=== PATIENT | male | born 1940 | race Caucasian/White ===

== ENCOUNTER 2018-05-21 22:28 | Emergency (ER) | payer MEDICARE, OTHER ==
[~2018-05-21] VITALS: Ht 167.6 cm; Wt 50.8 kg
[2018-05-21] MEDS ORDERED: OXYMETAZOLINE 0.05% NASAL SPRAY 30ML BOTTLE. NS ONE (22:51)
[2018-05-21] MEDS ORDERED: GELATIN SPONGE SIZE 100. ONE (23:04)
[2018-05-21] MEDS ORDERED: TRANEXAMIC ACID 1,000 MG/10 ML VIAL. TOP ONE (23:15)
[2018-05-21 23:31] LABS: BASO # 0.1 x10^3/uL (0.0-0.2); BASO % 1 % (0-3); EOS # 0.2 x10^3/uL (0.0-0.7); EOS % 2 % (0-3); HEMATOCRIT 37.5 % (39.0-53.0); HEMOGLOBIN 12.3 g/dL (13.0-17.5); LYMPH # 1.1 x10^3/uL (1.0-4.8); LYMPH % 8 % (24-48); MEAN CORPUSCULAR HEMOGLOBIN 33 pg (25-35); MEAN CORPUSCULAR HGB CONC 33 g/dL (31-37); MEAN CORPUSCULAR VOLUME 100 fL (79-100); MONO # 0.9 x10^3/uL (0.0-1.1); MONO % 7 % (0-9); NEUT # 11.1 x10^3uL (1.8-7.7); NEUT % 83 % (31-73); PLATELET COUNT 231 x10^3/uL (140-400); RED BLOOD COUNT 3.74 x10^6/uL (4.30-5.70); RED CELL DISTRIBUTION WIDTH 13.7 % (11.5-14.5); WHITE BLOOD COUNT 13.4 x10^3/uL (4.0-11.0)
[2018-05-21 23:38] LABS: PROTHROMBIN TIME PATIENT 12.5 SEC (11.7-14.0)
[2018-05-21 23:39] LABS: CALCIUM 10.1 mg/dL (8.5-10.1); GFR 72.3; POTASSIUM 4.6 mmol/L (3.5-5.1)
[2018-05-21 23:45] LABS: ALBUMIN 3.9 g/dL (3.4-5.0); ALBUMIN/GLOBULIN RATIO 0.9 (1.0-1.7); TOTAL BILIRUBIN 0.3 mg/dL (0.2-1.0); TOTAL PROTEIN 8.1 g/dL (6.4-8.2)
[2018-05-22] MEDS ORDERED: CEPH500C PO (00:09)
[2018-05-22 00:31] VITALS: BP 153/85
--- NOTE | 2018-05-22 00:50 | PHYS DOC ---
Past Medical History Past Medical History: COPD Past Surgical History: Other Additional Past Surgical Histo: Graft to left ear drum Alcohol Use: None Drug Use: None Adult General Chief Complaint Chief Complaint: NOSEBLEED HPI HPI Patient is a 77 year old male brought in by ambulance with nosebleed and anxiety. Apparently it started earlier in the day it stopped on its own and then came back and he was having trouble breathing he is on home oxygen 4 L at baseline for COPD [facility] the history is limited by the patient's anxiety and very very hard of hearing. Review of Systems Review of Systems Limited by anxiety and acuity of condition Current Medications Current Medications Current Medications Medications (Trade) Dose Ordered Sig/Carlos Start Time Stop Time Status Last Admin Dose Admin Gelatin (Gelfoam Size 100) 1 each STK-MED ONCE 05/21/18 23:04 05/21/18 23:05 DC Lorazepam (Ativan) 2 mg STK-MED ONCE 05/21/18 23:31 05/21/18 23:32 DC Oxymetazoline HCl (Afrin) 120 spray STK-MED ONCE 05/21/18 22:51 05/21/18 22:52 DC Tranexamic Acid (Cyklokapron) 1,000 mg 1X ONCE 05/21/18 23:15 05/21/18 23:16 DC Allergies Allergies Allergies Coded Allergies Type Severity Reaction Last Updated Verified No Known Drug Allergies 05/22/18 No Physical Exam Physical Exam Constitutional: Well developed, cachectic HENT: Patient is active bleeding from the left Vivas visualization is difficult due to amount of bleeding however there appears to be a source of bleeding in the anterior superior medial nasal septum. Patient has his nasal cannula in his mouth and is tachypnea, Neck: Normal range of motion, no tenderness, supple, no stridor. [] Cardiovascular: Tachycardic no obvious murmurs. Lungs & Thorax: Distant bilateral breath sounds Abdomen: Bowel sounds normal, soft, no tenderness, no masses, no pulsatile masses. [] Skin: Warm, dry, no erythema, no rash. [] Back: No tenderness, no CVA tenderness. [] Extremities: No tenderness, no cyanosis, no clubbing, ROM intact, no edema. [] Neurologic: Alert and oriented X 3, normal motor function, normal sensory function, no focal deficits noted. [] Psychologic: Very anxious Current Patient Data Vital Signs Vital Signs Date Time Temp Pulse Resp B/P (MAP) Pulse Ox O2 Delivery O2 Flow Rate FiO2 05/22/18 00:01 124 142/85 (104) Nasal Cannula 4.0 05/21/18 23:31 96 05/21/18 22:28 97.8 28 97.8 Lab Values Laboratory Tests Test 05/21/18 23:20 White Blood Count 13.4 x10^3/uL (4.0-11.0) H Red Blood Count 3.74 x10^6/uL (4.30-5.70) L Hemoglobin 12.3 g/dL (13.0-17.5) L Hematocrit 37.5 % (39.0-53.0) L Mean Corpuscular Volume 100 fL (79-100) Mean Corpuscular Hemoglobin 33 pg (25-35) Mean Corpuscular Hemoglobin Concent 33 g/dL (31-37) Red Cell Distribution Width 13.7 % (11.5-14.5) Platelet Count 231 x10^3/uL (140-400) Neutrophils (%) (Auto) 83 % (31-73) H Lymphocytes (%) (Auto) 8 % (24-48) L Monocytes (%) (Auto) 7 % (0-9) Eosinophils (%) (Auto) 2 % (0-3) Basophils (%) (Auto) 1 % (0-3) Neutrophils # (Auto) 11.1 x10^3uL (1.8-7.7) H Lymphocytes # (Auto) 1.1 x10^3/uL (1.0-4.8) Monocytes # (Auto) 0.9 x10^3/uL (0.0-1.1) Eosinophils # (Auto) 0.2 x10^3/uL (0.0-0.7) Basophils # (Auto) 0.1 x10^3/uL (0.0-0.2) Prothrombin Time 12.5 SEC (11.7-14.0) Prothrombin Time INR 1.0 (0.8-1.1) Sodium Level 139 mmol/L (136-145) Potassium Level 4.6 mmol/L (3.5-5.1) Chloride Level 101 mmol/L (98-107) Carbon Dioxide Level 30 mmol/L (21-32) Anion Gap 8 (6-14) Blood Urea Nitrogen 37 mg/dL (8-26) H Creatinine 1.0 mg/dL (0.7-1.3) Estimated GFR (Cockcroft-Gault) 72.3 BUN/Creatinine Ratio 37 (6-20) H Glucose Level 160 mg/dL (70-99) H Calcium Level 10.1 mg/dL (8.5-10.1) Total Bilirubin 0.3 mg/dL (0.2-1.0) Aspartate Amino Transferase (AST) 22 U/L (15-37) Alanine Aminotransferase (ALT) 25 U/L (16-63) Alkaline Phosphatase 51 U/L (46-116) Total Protein 8.1 g/dL (6.4-8.2) Albumin 3.9 g/dL (3.4-5.0) Albumin/Globulin Ratio 0.9 (1.0-1.7) L Laboratory Tests 05/21/18 23:20 Laboratory Tests 05/21/18 23:20 EKG EKG [] Radiology/Procedures Radiology/Procedures [] Course & Med Decision Making Course & Med Decision Making Pertinent Labs and Imaging studies reviewed. (See chart for details) []77-year-old male with history of COPD who is on home oxygen present in with epistaxis apparent source of bleeding from the medial septum although the patient observation was somewhat difficult. It was bleeding quite briskly he was very anxious I placed Afrin in the left naris and then inserted a Merocel however the bleeding continued I then placed a Rhino Rocket in the left nose however the bleeding continue I then placed a Rhino Rocket in the right Vivas and 160s and then the bleeding did stop. Patient was observed in the ER for a couple of hours with no further bleeding. We did give him a simple mask to use on his face at home to supply him with oxygen while he has the packing in his nose. He was given a prescription for Keflex and he was told that [facility] needs [facility] to [facility] follow-up for packing removal and more detailed evaluation. Return precautions were discussed and he voiced understanding at the time of discharge his tachycardia had improved significantly he was downtrending zigzag had also improved a lot after dose of Ativan. Dragon Disclaimer Dragon Disclaimer This electronic medical record was generated, in whole or in part, using a voice recognition dictation system. Departure Departure Impression: Primary Impression: Epistaxis Disposition: 01 HOME, SELF-CARE Condition: STABLE Patient Instructions: Nosebleed, [id number] Additional Instructions: TAKE ANTIBIOTICS, [facility]-4 DAYS FOR PACKING REMOVAL. RETURN TO ER FOR RECURRENT BLEEDING. Scripts Cephalexin (CEPHALEXIN) 500 Mg Capsule 1 CAP PO QID, #20 CAP Prov: MALLIKA BELLO MD 05/22/18 MALLIKA BELLO MD May 22, 2018 00:50
== END 2018-05-22 02:01 | disposition home or self-care (01) ==
LOC: ER 22:28
DX: R04.0 Epistaxis (principal); F41.9 Anxiety disorder, unspecified; J44.9 Chronic obstructive pulmonary disease, unspecified
CPT/HCPCS: 36415; 80053; 85025; 85610; 96374; 99284; J2060

== ENCOUNTER 2020-10-17 12:34 | Inpatient (IN) | payer OTHER ==
[~2020-10-17] VITALS: Ht 160 cm; Wt 38.8 kg
[~2020-10-17 12:34] MED LIST: CEPH500C PO
[2020-10-17] MEDS ORDERED: ALBUTEROL SULFATE 2.5 MG/3 ML NEBU. NEB ONE (12:45)
[2020-10-17] MEDS ORDERED: DEXAMETHASONE SOD PHOS 4 MG/ML VIAL IVP ONE (12:45)
[2020-10-17 12:57] LABS: BASO % 0 % (0-3); EOS # 0.1 x10^3/uL (0.0-0.7); EOS % 1 % (0-3); HEMATOCRIT 36.1 % (39.0-53.0); HEMOGLOBIN 11.8 g/dL (13.0-17.5); LYMPH # 0.8 x10^3/uL (1.0-4.8); LYMPH % 11 % (24-48); MEAN CORPUSCULAR HEMOGLOBIN 33 pg (25-35); MEAN CORPUSCULAR HGB CONC 33 g/dL (31-37); MEAN CORPUSCULAR VOLUME 101 fL (79-100); MONO # 0.6 x10^3/uL (0.0-1.1); MONO % 8 % (0-9); NEUT # 6.1 x10^3/uL (1.8-7.7); NEUT % 80 % (31-73); PLATELET COUNT 243 x10^3/uL (140-400); RED BLOOD COUNT 3.57 x10^6/uL (4.30-5.70); RED CELL DISTRIBUTION WIDTH 13.9 % (11.5-14.5); WHITE BLOOD COUNT 7.5 x10^3/uL (4.0-11.0)
[2020-10-17 13:07] LABS: CALCIUM 10.3 mg/dL (8.5-10.1); GFR 71.7; POTASSIUM 4.3 mmol/L (3.5-5.1)
--- NOTE | 2020-10-17 13:07 | ED.ADGEN ---
Past Medical History Past Medical History: COPD Past Surgical History: Other Additional Past Surgical Histo: Graft to left ear drum Smoking Status: Former Smoker Alcohol Use: None Drug Use: None General Adult EDM: Chief Complaint: DYSPNEA/RESPIRATOY DISTRESS HPI: HPI: Patient is an 80-year-old male with past medical history of COPD on 7 L of oxygen who presents to the emergency room complaining of difficulty breathing. EMS turned his oxygen up to 8 and he has had normal pulse ox since that time. Patient states this is been ongoing for the last couple of days. He reports that he has been taking his medications. He does not believe he has had any fevers. He has had a mild cough. He has had multiple episodes of COPD exacerbations in the past. Review of Systems: Review of Systems: Complete ROS is negative unless otherwise documented in HPI Current Medications: Current Medications Medications (Trade) Dose Ordered Sig/Carlos Start Time Stop Time Status Last Admin Dose Admin Albuterol Sulfate (Ventolin Neb Soln) 2.5 mg 1X ONCE 10/17/20 12:45 10/17/20 12:46 DC 10/17/20 12:45 2.5 MG Dexamethasone Sodium Phosphate (Decadron) 10 mg 1X ONCE 10/17/20 12:45 10/17/20 12:46 DC 10/17/20 13:52 10 MG Info (CONTRAST GIVEN -- Rx MONITORING) 1 each PRN DAILY PRN 10/17/20 15:00 10/19/20 14:59 Iohexol (Omnipaque 300 Mg/ml) 75 ml 1X ONCE 10/17/20 15:00 10/17/20 15:01 DC Allergies: Allergies: Allergies Coded Allergies Type Severity Reaction Last Updated Verified No Known Drug Allergies 05/22/18 No Physical Exam: PE: General: Awake, alert, NAD. Cachectic, barrel chested HEENT: Atraumatic, EOMI, PERRL, airway patent, moist oral mucosa Neck: Supple, trachea midline Respiratory: Decreased breath sounds bilaterally, minimal wheezing, tachypnea CV: RRR, no murmur, cap refill <2 GI: Soft, nondistended, nontender, no masses MSK: No obvious deformities Skin: Warm, dry, intact Neuro: A&O x3, speech NL, sensory and motor grossly intact, no focal deficits Psych: Normal affect, normal mood, not suicidal or homicidal Current Patient Data: Labs: Laboratory Tests Test 10/17/20 12:40 10/17/20 12:52 White Blood Count 7.5 x10^3/uL (4.0-11.0) Red Blood Count 3.57 x10^6/uL (4.30-5.70) L Hemoglobin 11.8 g/dL (13.0-17.5) L Hematocrit 36.1 % (39.0-53.0) L Mean Corpuscular Volume 101 fL (79-100) H Mean Corpuscular Hemoglobin 33 pg (25-35) Mean Corpuscular Hemoglobin Concent 33 g/dL (31-37) Red Cell Distribution Width 13.9 % (11.5-14.5) Platelet Count 243 x10^3/uL (140-400) Neutrophils (%) (Auto) 80 % (31-73) H Lymphocytes (%) (Auto) 11 % (24-48) L Monocytes (%) (Auto) 8 % (0-9) Eosinophils (%) (Auto) 1 % (0-3) Basophils (%) (Auto) 0 % (0-3) Neutrophils # (Auto) 6.1 x10^3/uL (1.8-7.7) Lymphocytes # (Auto) 0.8 x10^3/uL (1.0-4.8) L Monocytes # (Auto) 0.6 x10^3/uL (0.0-1.1) Eosinophils # (Auto) 0.1 x10^3/uL (0.0-0.7) Basophils # (Auto) 0.0 x10^3/uL (0.0-0.2) Sodium Level 139 mmol/L (136-145) Potassium Level 4.3 mmol/L (3.5-5.1) Chloride Level 101 mmol/L (98-107) Carbon Dioxide Level 35 mmol/L (21-32) H Anion Gap 3 (6-14) L Blood Urea Nitrogen 18 mg/dL (8-26) Creatinine 1.0 mg/dL (0.7-1.3) Estimated GFR (Cockcroft-Gault) 71.7 BUN/Creatinine Ratio 18 (6-20) Glucose Level 119 mg/dL (70-99) H Calcium Level 10.3 mg/dL (8.5-10.1) H Total Bilirubin 0.5 mg/dL (0.2-1.0) Aspartate Amino Transferase (AST) 18 U/L (15-37) Alanine Aminotransferase (ALT) 20 U/L (16-63) Alkaline Phosphatase 118 U/L (46-116) H Troponin I Quantitative < 0.017 ng/mL (0.000-0.055) BQ-Evy-X-Type Natriuretic Peptide 282 pg/mL (0-449) Total Protein 8.3 g/dL (6.4-8.2) H Albumin 3.9 g/dL (3.4-5.0) Albumin/Globulin Ratio 0.9 (1.0-1.7) L O2 Saturation 98 % (92-99) Arterial Blood pH 7.44 (7.35-7.45) Arterial Blood pCO2 at Patient Temp 45 mmHg (35-46) Arterial Blood pO2 at Patient Temp 128 mmHg (65-108) H Arterial Blood HCO3 30 mmol/L (21-28) H Arterial Blood Base Excess 5 mmol/L (-3-3) H FiO2 52/8l nc Laboratory Tests 10/17/20 12:40 Laboratory Tests 10/17/20 12:40 Vital Signs: Vital Signs Date Time Temp Pulse Resp B/P (MAP) Pulse Ox O2 Delivery O2 Flow Rate FiO2 10/17/20 12:57 97 Nasal Cannula 8.0 10/17/20 12:34 98.2 95 31 149/77 (101) 98.2 EKG: EKG: [] Heart Score: Risk Factors: Risk Factors: DM, Current or recent (<one month) smoker, HTN, HLP, family history of CAD, obesity. Risk Scores: Score 0 - 3: 2.5% MACE over next 6 weeks - Discharge Home Score 4 - 6: 20.3% MACE over next 6 weeks - Admit for Clinical Observation Score 7 - 10: 72.7% MACE over next 6 weeks - Early Invasive Strategies Radiology/Procedures: Radiology/Procedures: [] Course & Med Decision Making: Course & Med Decision Making Pertinent Labs and Imaging studies reviewed. (See chart for details) Patient is an 80-year-old male with past medical history of COPD who presents to the emergency room complaining of shortness of breath. He is requiring a mild amount of increased oxygen. He does have some tachypnea and increased work of breathing on exam. Initially BiPAP was ordered, however patient refused. At that time a gas was done which is normal at this time. Patient does not need to be intubated at this time. He was given Decadron and duo nebs. Shortness of breath work-up was ordered including a CBC, BMP, chest x-ray, EKG. EKG is normal. Patient continues to have shortness of breath. He refused to do BiPAP. He will be admitted to the hospital for COPD exacerbation. Aletheaon Disclaimer: Saritha Disclaimer: This electronic medical record was generated, in whole or in part, using a voice recognition dictation system. Departure Departure Impression: Primary Impression: COPD exacerbation Disposition: ADMITTED INPT THIS HOSP Condition: IMPROVED Referrals: UNKNOWN PCP NAME (PCP) GILES NEW MD Oct 17, 2020 13:07
[2020-10-17 13:13] LABS: ALBUMIN 3.9 g/dL (3.4-5.0); ALBUMIN/GLOBULIN RATIO 0.9 (1.0-1.7); TOTAL BILIRUBIN 0.5 mg/dL (0.2-1.0); TOTAL PROTEIN 8.3 g/dL (6.4-8.2)
[2020-10-17 13:17] LABS: BASE EXCESS ABG 5 mmol/L (-3-3); HCO3 ABG 30 mmol/L (21-28); PCO2 ABG 45 mmHg (35-46); PO2 ABG 128 mmHg (65-108); SAT O2 ABG 98 % (92-99)
[2020-10-17 13:18] LABS: FIO2 ABG 52/8L NC
--- NOTE | 2020-10-17 13:57 | RAD ---
EXAM: XR CHEST 1V INDICATION: Reason: sob / Spl. Instructions: / History: . TECHNIQUE: Single view COMPARISON: None FINDINGS: The heart size is normal. Great vessels show enlargement of the pulmonary arteries, left greater than right and tortuosity of t he thoracic aorta. Fullness of the holley bilaterally is compatible with pulmonary arterial enlargement. No discrete mass identified. Lungs are hyperinflated in a pattern consistent with underlying COPD. There is scarring and volume lo ss in the right upper lobe with right hilar retraction. Nodular fullness of the right lung base is al so seen. There is no pleural effusion or pneumothorax. There are no significant osseous abnormalities. IMPRESSION: COPD with enlargement of the pulmonary arteries, suggesting pulmonary arterial hypertension, and volu me loss in the right upper lobe with elevation of the minor fissure, possibly reflecting hilar retrac tion from chronic inflammation. Post obstructive atelectasis from an obstructing right hilar mass is not confidently excluded. CT chest with IV contrast could be helpful in further evaluation. Electronically signed by: Roni Al MD (10/17/2020 1:54 PM) [id number]
[2020-10-17] MEDS ORDERED: CONTRAST GIVEN. MC PRN (15:00)
[2020-10-17] MEDS ORDERED: IOHEXOL 300 MG/ML 100ML VIAL. IV ONE (15:00)
--- NOTE | 2020-10-17 15:32 | RAD ---
CT THORAX W INDICATION: abnormal chest Comparison: Chest 10/17/2020. TECHNIQUE: Following the uneventful administration of intravenous contrast, 75 cc Omnipaque 350, axia l CT sections were obtained through the lungs and upper abdomen. Multiplanar reconstructions and MIP images were obtained. RS compliance statement: One or more of the following individualized dose reduction techniques were utilized for this examinat ion: 1. Automated exposure control 2. Adjustment of the mA and/or kV according to patient size 3. Use of iterative reconstruction technique FINDINGS: Lungs and Airways: Right upper lobe subpleural opacities, architectural distortion, volume loss, and bronchiectasis. There are a couple of small indeterminate pulmonary nodules with customer contact representative nodul e as follows: Right lower lobe indeterminate 6 mm nodule (series 2 image 42). Severe centrilobular em physema. Calcified left lower lobe granuloma. Pleura: The pleural spaces are normal. Heart and Mediastinum: The visualized thyroid is normal in size and attenuation. No axillary or supra clavicular lymphadenopathy. No mediastinal, hilar or retrocrural lymphadenopathy. Normal cardiac size . Coronary artery atherosclerotic disease. No pericardial effusion. Tortuous atherosclerotic thoracic aorta. Abdomen: Limited images through the upper abdomen show no abnormality of the visualized organs. Bones and Soft Tissues: Degenerative changes of the spine. Age indeterminate compression deformities at nearly every thoracic level. IMPRESSION: 1. Abnormality noted on the prior radiograph corresponds to right upper lobe subpleural opacities wit h volume loss and bronchiectasis. Suspect this represents sequela of chronic infection or potentially post radiation change if patient has been previously treated. No definite mass or thoracic lymphaden opathy is identified. Recommend comparison with prior imaging, or if no imaging available 3-6 month f ollow-up chest CT to assess stability. 2. Few small indeterminate pulmonary nodules. Attention on follow-up imaging. 3. Age-indeterminate compression deformities at nearly every thoracic level. Correlate for history of trauma/focal tenderness. Electronically signed by: Jamie Vuong MD (10/17/2020 3:30 PM) [facility]
--- NOTE | 2020-10-17 16:43 | PDOC1 ---
History and Physical Date of Admission Date of Admission DATE: 10/17/20 TIME: 16:43 Identification/Chief Complaint Chief Complaint Shortness of breath Source Source: Patient History of Present Illness History of Present Illness Mr Myrick is an 80yo [place] w/ PMHx COPD on 7 L of oxygen at home presents to ED via EMS c/o difficulty breathing. EMS turned his oxygen up to 8 and he has had normal pulse ox since that time. Patient states this is been ongoing for the last couple of days. No fevers, mild cough. Has been to the [facility] with multiple COPD exacerbations in the past. No recent sick contacts or COVID 19 exposures. He has been eating poorly recently and losing weight as well. Was tripoding with accessory muscle use, pursed lips with conversational dyspnea on interview in ED. Labs with WBC 7.5, Hb 11.8, platelets 243, MCV 101, Na 139, K 4.3, BUN 18, Cr 1, glucose 119, Ca 10.3, alk phos 118, BNP 282, Trop 0. ABG with pH 7.44, PaCO2 45, PaO2 128 on 8L. Chest radiograph with COPD with enlargement of the pulmonary arteries, suggesting pulmonary arterial hypertension, and volume loss in the right upper lobe with elevation of the minor fissure, confirmed on CT appeared to be bronchiectasis Admitted for further care Past Medical History Pulmonary: Bronchitis, COPD Past Surgical History Past Surgical History: Other (Right eardrum repair) Family History Family History: Hypertension Social History Smoke: Quit ALCOHOL: none Drugs: None Current Problem List Problem List Problems Medical Problems: (1) COPD exacerbation Status: Acute Current Medications Current Medications Current Medications Dexamethasone Sodium Phosphate (Decadron) 10 mg 1X ONCE IVP Last administered on 10/17/20at 13:52; Start 10/17/20 at 12:45; Stop 10/17/20 at 12:46; Status DC Albuterol Sulfate (Ventolin Neb Soln) 2.5 mg 1X ONCE NEB Last administered on 10/17/20at 12:45; Start 10/17/20 at 12:45; Stop 10/17/20 at 12:46; Status DC Iohexol (Omnipaque 300 Mg/ml) 75 ml 1X ONCE IV ; Start 10/17/20 at 15:00; Stop 10/17/20 at 15:01; Status DC Info (CONTRAST GIVEN -- Rx MONITORING) 1 each PRN DAILY PRN MC SEE COMMENTS; Start 10/17/20 at 15:00; Stop 10/19/20 at 14:59 Active Scripts Active Cephalexin 500 Mg Capsule 1 Cap PO QID Allergies Allergies: Coded Allergies: No Known Drug Allergies (Unverified , 05/22/18) ROS General: YES: Fatigue, Malaise, Appetite; No: Chills, Night Sweats, Other PSYCHOLOGICAL ROS: No: Anxiety, Behavioral Disorder, Concentration difficultie, Decreased libido, Depression, Disorientation, Hallucinations, Hostility, Irritablity, Memory difficulties, Mood Swings, Obsessive thoughts, Physical abuse, Sexual abuse, Sleep disturbances, Suicidal ideation, Other Eyes: No Blurry vision, No Decreased vision, No Double vision, No Dry eyes, No Excessive tearing, No Eye Pain, No Itchy Eyes, No Loss of vision, No Photophobia, No Scotomata, No Uses contacts, No Uses glasses, No Other HEENT: No: Heacaches, Visual Changes, Hearing change, Nasal congestion, Nasal discharge, Oral lesions, Sinus pain, Sore Throat, Epistaxis, Sneezing, Snoring, Tinnitus, Vertigo, Vocal changes, Other ALLERGY AND IMMUNOLOGY: No: Hives, Insect Bite Sensitivity, Itchy/Watery Eyes, Nasal Congestion, Post Nasal Drip, Seasonal Allergies, Other Hematological and Lymphatic: No: Bleeding Problems, Blood Clots, Blood Transfusions, Brusing, Night Sweats, Pallor, Swollen Lymph Nodes, Other ENDOCRINE: No: Breast Changes, Galactorrhea, Hair Pattern Changes, Hot Flashes, Malaise/lethargy, Mood Swings, Palpitations, Polydipsia/polyuria, Skin Changes, Temperature Intolerance, Unexpected Weight Changes, Other Breast: No New/Changing Breast Lumps, No Nipple changes, No Nipple discharge, No Other Respiratory: YES: Cough, Shortness of breath, SOB with excertion, Tachypnea, Wheezing; No: Hemoptysis, Orthopnea, Pleuritic Pain, Sputum Changes, Stridor, Other Cardiovascular: No Chest Pain, No Palpitations, No Orthopnea, No Paroxysmal Noc. Dyspnea, No Edema, No Lt Headedness, No Other Gastrointestinal: No Nausea, No Vomiting, No Abdominal Pain, No Diarrhea, No Constipation, No Melena, No Hematochezia, No Other Genitourinary: No Dysuria, No Frequency, No Incontinence, No Hematuria, No Retention, No Discharge, No Urgency, No Pain, No Flank Pain, No Other, No , No , No , No , No , No , No Musculoskeletal: No Gait Disturbance, No Joint Pain, No Joint Stiffness, No Joint Swelling, No Muscle Pain, No Muscular Weakness, No Pain In:, No Swelling In:, No Other Neurological: No Behavorial Changes, No Bowel/Bladder ControlChng, No Confusion, No Dizziness, No Gait Disturbance, No Headaches, No Impaired Coord/balance, No Memory Loss, No Numbness/Tingling, No Seizures, No Speech Problems, No Tremors, No Visual Changes, No Weakness, No Other Skin: No Dry Skin, No Eczema, No Hair Changes, No Lumps, No Mole Changes, No Mottling, No Nail Changes, No Pruritus, No Rash, No Skin Lesion Changes, No Other, No Acne Physical Exam General: Alert, Oriented X3, Cooperative, severe distress HEENT: Atraumatic, PERRLA, EOMI, Mucous membr. moist/pink Lungs: Other (diffuse wheezing, prolonged expiratory phase, intercostal retractions) Heart: S1S2, RRR, no thrills, no rubs, no gallops, no murmurs Abdomen: Normal bowel sounds, Soft, No tenderness, No hepatosplenomegaly, No masses Rectal Exam: not examined Extremities: No clubbing, No cyanosis, No edema, Normal pulses, No tenderness/swelling Skin: No rashes, No breakdown, No significant lesion Neuro: Normal gait, Normal speech, Strength at 5/5 X4 ext, Normal tone, Sensat ion intact, Cranial nerves 3-12 NL, Reflexes 2+ Psych/Mental Status: Mental status NL, Mood NL Vitals Vitals Vital Signs Date Time Temp Pulse Resp B/P (MAP) Pulse Ox O2 Delivery O2 Flow Rate FiO2 10/17/20 12:57 97 Nasal Cannula 8.0 10/17/20 12:34 98.2 95 31 149/77 (101) 98.2 Labs Labs Laboratory Tests Test 10/17/20 12:40 10/17/20 12:52 White Blood Count 7.5 x10^3/uL (4.0-11.0) Red Blood Count 3.57 x10^6/uL (4.30-5.70) Hemoglobin 11.8 g/dL (13.0-17.5) Hematocrit 36.1 % (39.0-53.0) Mean Corpuscular Volume 101 fL (79-100) Mean Corpuscular Hemoglobin 33 pg (25-35) Mean Corpuscular Hemoglobin Concent 33 g/dL (31-37) Red Cell Distribution Width 13.9 % (11.5-14.5) Platelet Count 243 x10^3/uL (140-400) Neutrophils (%) (Auto) 80 % (31-73) Lymphocytes (%) (Auto) 11 % (24-48) Monocytes (%) (Auto) 8 % (0-9) Eosinophils (%) (Auto) 1 % (0-3) Basophils (%) (Auto) 0 % (0-3) Neutrophils # (Auto) 6.1 x10^3/uL (1.8-7.7) Lymphocytes # (Auto) 0.8 x10^3/uL (1.0-4.8) Monocytes # (Auto) 0.6 x10^3/uL (0.0-1.1) Eosinophils # (Auto) 0.1 x10^3/uL (0.0-0.7) Basophils # (Auto) 0.0 x10^3/uL (0.0-0.2) Sodium Level 139 mmol/L (136-145) Potassium Level 4.3 mmol/L (3.5-5.1) Chloride Level 101 mmol/L (98-107) Carbon Dioxide Level 35 mmol/L (21-32) Anion Gap 3 (6-14) Blood Urea Nitrogen 18 mg/dL (8-26) Creatinine 1.0 mg/dL (0.7-1.3) Estimated GFR (Cockcroft-Gault) 71.7 BUN/Creatinine Ratio 18 (6-20) Glucose Level 119 mg/dL (70-99) Calcium Level 10.3 mg/dL (8.5-10.1) Total Bilirubin 0.5 mg/dL (0.2-1.0) Aspartate Amino Transf (AST/SGOT) 18 U/L (15-37) Alanine Aminotransferase (ALT/SGPT) 20 U/L (16-63) Alkaline Phosphatase 118 U/L (46-116) Troponin I Quantitative < 0.017 ng/mL (0.000-0.055) QZ-Meq-O-Type Natriuretic Peptide 282 pg/mL (0-449) Total Protein 8.3 g/dL (6.4-8.2) Albumin 3.9 g/dL (3.4-5.0) Albumin/Globulin Ratio 0.9 (1.0-1.7) O2 Saturation 98 % (92-99) Arterial Blood pH 7.44 (7.35-7.45) Arterial Blood pCO2 at Patient Temp 45 mmHg (35-46) Arterial Blood pO2 at Patient Temp 128 mmHg (65-108) Arterial Blood HCO3 30 mmol/L (21-28) Arterial Blood Base Excess 5 mmol/L (-3-3) FiO2 52/8l nc Laboratory Tests Test 10/17/20 12:40 10/17/20 12:52 White Blood Count 7.5 x10^3/uL (4.0-11.0) Red Blood Count 3.57 x10^6/uL (4.30-5.70) Hemoglobin 11.8 g/dL (13.0-17.5) Hematocrit 36.1 % (39.0-53.0) Mean Corpuscular Volume 101 fL (79-100) Mean Corpuscular Hemoglobin 33 pg (25-35) Mean Corpuscular Hemoglobin Concent 33 g/dL (31-37) Red Cell Distribution Width 13.9 % (11.5-14.5) Platelet Count 243 x10^3/uL (140-400) Neutrophils (%) (Auto) 80 % (31-73) Lymphocytes (%) (Auto) 11 % (24-48) Monocytes (%) (Auto) 8 % (0-9) Eosinophils (%) (Auto) 1 % (0-3) Basophils (%) (Auto) 0 % (0-3) Neutrophils # (Auto) 6.1 x10^3/uL (1.8-7.7) Lymphocytes # (Auto) 0.8 x10^3/uL (1.0-4.8) Monocytes # (Auto) 0.6 x10^3/uL (0.0-1.1) Eosinophils # (Auto) 0.1 x10^3/uL (0.0-0.7) Basophils # (Auto) 0.0 x10^3/uL (0.0-0.2) Sodium Level 139 mmol/L (136-145) Potassium Level 4.3 mmol/L (3.5-5.1) Chloride Level 101 mmol/L (98-107) Carbon Dioxide Level 35 mmol/L (21-32) Anion Gap 3 (6-14) Blood Urea Nitrogen 18 mg/dL (8-26) Creatinine 1.0 mg/dL (0.7-1.3) Estimated GFR (Cockcroft-Gault) 71.7 BUN/Creatinine Ratio 18 (6-20) Glucose Level 119 mg/dL (70-99) Calcium Level 10.3 mg/dL (8.5-10.1) Total Bilirubin 0.5 mg/dL (0.2-1.0) Aspartate Amino Transf (AST/SGOT) 18 U/L (15-37) Alanine Aminotransferase (ALT/SGPT) 20 U/L (16-63) Alkaline Phosphatase 118 U/L (46-116) Troponin I Quantitative < 0.017 ng/mL (0.000-0.055) PI-Cpk-J-Type Natriuretic Peptide 282 pg/mL (0-449) Total Protein 8.3 g/dL (6.4-8.2) Albumin 3.9 g/dL (3.4-5.0) Albumin/Globulin Ratio 0.9 (1.0-1.7) O2 Saturation 98 % (92-99) Arterial Blood pH 7.44 (7.35-7.45) Arterial Blood pCO2 at Patient Temp 45 mmHg (35-46) Arterial Blood pO2 at Patient Temp 128 mmHg (65-108) Arterial Blood HCO3 30 mmol/L (21-28) Arterial Blood Base Excess 5 mmol/L (-3-3) FiO2 52/8l nc Images Images Chest radiograph: The heart size is normal. Great vessels show enlargement of the pulmonary arteries, left greater than right and tortuosity of the thoracic aorta. Fullness of the holley bilaterally is compatible with pulmonary arterial enlargement. No discrete mass identified. Lungs are hyperinflated in a pattern consistent with underlying COPD. There is scarring and volume loss in the right upper lobe with right hilar retraction. Nodular fullness of the right lung base is also seen. There is no pleural effusion or pneumothorax. There are no significant osseous abnormalities. IMPRESSION: COPD with enlargement of the pulmonary arteries, suggesting pulmonary arterial hypertension, and volume loss in the right upper lobe with elevation of the minor fissure, possibly reflecting hilar retraction from chronic inflammation. Post obstructive atelectasis from an obstructing right hilar mass is not confidently excluded. CT chest with IV contrast could be helpful in further evaluation. CT Chest: Lungs and Airways: Right upper lobe subpleural opacities, architectural distortion, volume loss, and bronchiectasis. There are a couple of small indeterminate pulmonary nodules with cordage sales representative nodule as follows: Right lower lobe indeterminate 6 mm nodule (series 2 image 42). Severe centrilobular emphysema. Calcified left lower lobe granuloma. Pleura: The pleural spaces are normal. Heart and Mediastinum: The visualized thyroid is normal in size and attenuation. No axillary or supraclavicular lymphadenopathy. No mediastinal, hilar or retrocrural lymphadenopathy. Normal cardiac size. Coronary artery atherosclerotic disease. No pericardial effusion. Tortuous atherosclerotic thoracic aorta. Abdomen: Limited images through the upper abdomen show no abnormality of the visualized organs. Bones and Soft Tissues: Degenerative changes of the spine. Age indeterminate compression deformities at nearly every thoracic level. IMPRESSION: 1. Abnormality noted on the prior radiograph corresponds to right upper lobe subpleural opacities with volume loss and bronchiectasis. Suspect this represents sequela of chronic infection or potentially post radiation change if patient has been previously treated. No definite mass or thoracic lym phadenopathy is identified. Recommend comparison with prior imaging, or if no imaging available 3-6 month follow-up chest CT to assess stability. 2. Few small indeterminate pulmonary nodules. Attention on follow-up imaging. 3. Age-indeterminate compression deformities at nearly every thoracic level. Correlate for history of trauma/focal tenderness. VTE Prophylaxis Ordered VTE Prophylaxis Devices: No VTE Pharmacological Prophylaxi: Yes Assessment/Plan Assessment/Plan A/P; Acute on chronic hypoxic respiratory failure - Acute COPD exacerbation - nebulizers, inhalers, steroids. 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 Their evaluation, treatment and testing was consistent with current guidelines for patients who present with complaints or symptoms that may be related to COVID-19. Justifications for Admission Other Justification JESSIE MORLEY MD Oct 17, 2020 16:43
[2020-10-17 20:00] VITALS: BP 135/62
[2020-10-17] MEDS ORDERED: DOCUSATE SODIUM 100 MG CAPSULE. PO PRN (20:30)
[2020-10-17] MEDS ORDERED: ONDANSETRON PF 4 MG/2 ML VIAL. IV PRN (20:30)
[2020-10-17] MEDS ORDERED: guaiFENesin ORAL 200 MG/10 ML LIQUID. PO PRN (20:30)
[2020-10-17] MEDS ORDERED: ALBUTEROL SULFATE 8GM INHALER. INH PRN (20:30)
[2020-10-17] MEDS: FLUTICASONE/VILANTEROL 200/25 INHALER. INH SCH (20:35)
[2020-10-17] MEDS: ENOXAPARIN 30 MG/0.3 ML SYRINGE. SQ SCH ×2 (20:39→22:00)
[2020-10-17] MEDS: ACETAMINOPHEN 325 MG TABLET. PO PRN (20:39)
[2020-10-17] MEDS: traZODone 50 MG TABLET. PO PRN (21:58)
[2020-10-18 03:39] VITALS: BP 109/67
[2020-10-18 07:00] VITALS: BP 124/69
[2020-10-18] MEDS: FLUTICASONE/VILANTEROL 200/25 INHALER. INH SCH (08:38)
--- NOTE | 2020-10-18 09:37 | CONS ---
DATE OF CONSULTATION: PULMONARY CONSULTATION ATTENDING PHYSICIAN: Dr. Johnston. REASON FOR CONSULTATION: Dyspnea, respiratory failure. HISTORY OF PRESENT ILLNESS: The patient is 80 years old who has likely end-stage COPD. He normally follows [facility]. He has smoked for 40+ years, quit 15 years ago. He is not on home oxygen at 7 liters. He was brought into the hospital with increasing shortness of breath. His oxygen flow was increased up to 8 liters. He has no fevers, no significant cough, no sputum production. He denies any obvious weight loss, but he is very cachectic. The patient states he has always been like this. No nausea, vomiting, no diarrhea, no dysuria. No focal weakness. No leg edema. The patient underwent CT chest. There was no old films available for comparison. There was a right upper lobe pleural thickening with subpleural opacities and architectural distortion and volume loss along with bronchiectasis. There were some tiny 6 mm nodule in the right lower lobe. The patient states he has no known cancer and never had received any radiation. No TB exposures. PAST MEDICAL HISTORY: Significant for suspected end-stage chronic obstructive pulmonary disease. History of chronic bronchitis. PAST SURGICAL HISTORY: Right eardrum repair. FAMILY HISTORY: Hypertension. SOCIAL HISTORY: Smoker for 40 years, quit 15 years ago. ALLERGIES: None. MEDICATIONS: Reviewed as listed in the [facility] including bronchodilators, albuterol inhaler. REVIEW OF SYSTEMS: Twelve-point system obtained. Pertinent positives discussed in my history of present illness, otherwise noncontributory. All systems that were negative were reviewed as well. PHYSICAL EXAMINATION: VITAL SIGNS: Reviewed. Pulse ox 99% on 8 liters, afebrile. NECK: Supple. LUNGS: With diminished breath sounds. CARDIOVASCULAR: With a regular rate. ABDOMEN: Soft. EXTREMITIES: With no pitting edema. LABORATORY DATA: Reviewed. White cell count 7.5, hemoglobin 11.8, platelets 243. BUN 18, creatinine 1.0. ABGs with a pH of 7.4, pCO2 of 45, pO2 of 128 on 8 liters. IMPRESSION: 1. Acute on chronic hypoxic respiratory failure secondary to acute exacerbation of chronic obstructive pulmonary disease. ( Baseline 7 litres) 2. Abnormal CT chest with sequelae of chronic lung disease. He has chronic pleural thickening with some evidence of bronchiectasis and architectural distortion. He has no known history of cancer and never received any radiation. No known history of Mycobacterium avium infection. This CT is likely a sequelae of chronic infections. RECOMMENDATIONS: 1. Continue present oxygen. He can be weaned down to his baseline of 7 liters. 2. Once COVID ruled out then start nebulizer treatments. In the meantime, continue with inhalers. 3. Lovenox for DVT prophylaxis. 4. Likely discharge in the next 24-48 hours and to be followed at [facility] where comparisons from his older films can be made. NEHEMIAS HUYNH MD DR: CLAUDIA/bettina JOB#: [id number] / [id number] NIA
--- NOTE | 2020-10-18 10:18 | EKG ---
[facility] [address] [place] [address] Test Date: 2020-10-17 Test Time: 13:02:09 Pat Name: GERA MON Department: Room: Gender: M Development Manager: : 1940 Requested By: GILES NEW Order Number: [id number] Reading MD: Measurements Intervals [place] Rate: 90 P: 76 AR: 156 QRS: -51 QRSD: 82 T: 65 QT: 352 QTc: 435 Interpretive Statements SINUS RHYTHM ABNORMAL LEFT AXIS DEVIATION QRS(T) CONTOUR ABNORMALITY CONSISTENT WITH ANTEROSEPTAL INFARCT PROBABLY OLD CONSISTENT WITH INFERIOR INFARCT PROBABLY OLD T ABNORMALITY IN HIGH LATERAL LEADS ABNORMAL ECG RI6.01 No previous ECG available for comparison
--- NOTE | 2020-10-18 10:35 | PDOC ---
[employer] PROGRESS NOTE Date of Service DOS: DATE: 10/18/20 TIME: 10:04 Chief Complaint Chief Complaint A/P; Acute on chronic hypoxic respiratory failure - Acute COPD exacerbation - nebulizers, inhalers, steroids. 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 EMS turned his oxygen up to 8 and he has had normal pulse ox since that time. Patient states this is been ongoing for the last couple of days. No fevers, mild cough. Has been to the [facility] with multiple COPD exacerbations in the past. No recent sick contacts or COVID 19 exposures. He has been eating poorly recently and losing weight as well. Was tripoding with accessory muscle use, pursed lips with conversational dyspnea on interview in ED. Labs with WBC 7.5, Hb 11.8, platelets 243, MCV 101, Na 139, K 4.3, BUN 18, Cr 1, glucose 119, Ca 10.3, alk phos 118, BNP 282, Trop 0. ABG with pH 7.44, PaCO2 45, PaO2 128 on 8L. Chest radiograph with COPD with enlargement of the pulmonary arteries, suggesting pulmonary arterial hypertension, and volume loss in the right upper lobe with elevation of the minor fissure, confirmed on CT appeared to be bronchiectasis Admitted for further care. Afebrile. Less short of breath, more comfortable in bed. No GI symptoms. Seen by pulmonology. Awaiting COVID results Vitals/I&O Vitals/I&O: Vital Signs Date Time Temp Pulse Resp B/P (MAP) Pulse Ox O2 Delivery O2 Flow Rate FiO2 10/18/20 08:30 100 8.0 10/18/20 08:00 Nasal Cannula 10/18/20 07:00 97.6 89 28 124/69 (87) 97.6 I & O 10/17/20 10/17/20 10/18/20 15:00 23:00 07:00 Intake Total 0 ml Balance 0 ml Physical Exam General: Alert, Oriented X3, Cooperative, severe distress Abdomen: Normal bowel sounds, Soft, No tenderness, No hepatosplenomegaly, No masses Extremities: No clubbing, No cyanosis, No edema, Normal pulses, No tenderness/swelling Skin: No rashes, No breakdown, No significant lesion Labs Labs: Laboratory Tests Test 10/17/20 12:40 10/17/20 12:52 White Blood Count 7.5 x10^3/uL (4.0-11.0) Red Blood Count 3.57 x10^6/uL (4.30-5.70) Hemoglobin 11.8 g/dL (13.0-17.5) Hematocrit 36.1 % (39.0-53.0) Mean Corpuscular Volume 101 fL (79-100) Mean Corpuscular Hemoglobin 33 pg (25-35) Mean Corpuscular Hemoglobin Concent 33 g/dL (31-37) Red Cell Distribution Width 13.9 % (11.5-14.5) Platelet Count 243 x10^3/uL (140-400) Neutrophils (%) (Auto) 80 % (31-73) Lymphocytes (%) (Auto) 11 % (24-48) Monocytes (%) (Auto) 8 % (0-9) Eosinophils (%) (Auto) 1 % (0-3) Basophils (%) (Auto) 0 % (0-3) Neutrophils # (Auto) 6.1 x10^3/uL (1.8-7.7) Lymphocytes # (Auto) 0.8 x10^3/uL (1.0-4.8) Monocytes # (Auto) 0.6 x10^3/uL (0.0-1.1) Eosinophils # (Auto) 0.1 x10^3/uL (0.0-0.7) Basophils # (Auto) 0.0 x10^3/uL (0.0-0.2) Sodium Level 139 mmol/L (136-145) Potassium Level 4.3 mmol/L (3.5-5.1) Chloride Level 101 mmol/L (98-107) Carbon Dioxide Level 35 mmol/L (21-32) Anion Gap 3 (6-14) Blood Urea Nitrogen 18 mg/dL (8-26) Creatinine 1.0 mg/dL (0.7-1.3) Estimated GFR (Cockcroft-Gault) 71.7 BUN/Creatinine Ratio 18 (6-20) Glucose Level 119 mg/dL (70-99) Calcium Level 10.3 mg/dL (8.5-10.1) Total Bilirubin 0.5 mg/dL (0.2-1.0) Aspartate Amino Transf (AST/SGOT) 18 U/L (15-37) Alanine Aminotransferase (ALT/SGPT) 20 U/L (16-63) Alkaline Phosphatase 118 U/L (46-116) Troponin I Quantitative < 0.017 ng/mL (0.000-0.055) PD-Gxf-K-Type Natriuretic Peptide 282 pg/mL (0-449) Total Protein 8.3 g/dL (6.4-8.2) Albumin 3.9 g/dL (3.4-5.0) Albumin/Globulin Ratio 0.9 (1.0-1.7) Procalcitonin < 0.10 ng/mL (0.00-0.10) O2 Saturation 98 % (92-99) Arterial Blood pH 7.44 (7.35-7.45) Arterial Blood pCO2 at Patient Temp 45 mmHg (35-46) Arterial Blood pO2 at Patient Temp 128 mmHg (65-108) Arterial Blood HCO3 30 mmol/L (21-28) Arterial Blood Base Excess 5 mmol/L (-3-3) FiO2 52/8l nc Assessment and Plan Assessmemt and Plan Problems Medical Problems: (1) COPD exacerbation Status: Acute Comment Review of Relevant I have reviewed the following items joseph (where applicable) has been applied. Medications: Current Medications Medications (Trade) Dose Ordered Sig/Carlos Route PRN Reason Start Time Stop Time Status Last Admin Dose Admin Dexamethasone Sodium Phosphate (Decadron) 10 mg 1X ONCE IVP 10/17/20 12:45 10/17/20 12:46 DC 10/17/20 13:52 Albuterol Sulfate (Ventolin Neb Soln) 2.5 mg 1X ONCE NEB 10/17/20 12:45 10/17/20 12:46 DC 10/17/20 12:45 Iohexol (Omnipaque 300 Mg/ml) 75 ml 1X ONCE IV 10/17/20 15:00 10/17/20 15:01 DC 10/17/20 15:17 Fluticasone/ Vilanterol (Breo Ellipta 200-25 Mcg) 1 puff DAILY INH 10/17/20 21:00 10/18/20 08:38 Acetaminophen (Tylenol) 650 mg PRN Q4HRS PRN PO TEMP OVER 100.4F OR MILD PAIN 10/17/20 20:30 10/17/20 20:39 Enoxaparin Sodium (Lovenox 30mg Syringe) 30 mg Q24H SQ 10/17/20 21:00 10/17/20 22:00 Olanzapine (ZyPREXA ZYDIS) 5 mg PRN BID PRN PO ANXIETY / AGITATION 10/17/20 20:30 10/17/20 20:38 Trazodone HCl (Desyrel) 50 mg PRN QHS PRN PO INSOMNIA 10/17/20 20:30 10/17/20 21:58 Justifications for Admission Other Justification JESSIE MORLEY MD Oct 18, 2020 10:35
[2020-10-18 10:36] LABS: BASO % 1 % (0-3); EOS % 0 % (0-3); HEMATOCRIT 32.7 % (39.0-53.0); LYMPH # 0.5 x10^3/uL (1.0-4.8); LYMPH % 9 % (24-48); MEAN CORPUSCULAR HEMOGLOBIN 34 pg (25-35); MEAN CORPUSCULAR HGB CONC 34 g/dL (31-37); MEAN CORPUSCULAR VOLUME 101 fL (79-100); MONO # 0.6 x10^3/uL (0.0-1.1); MONO % 12 % (0-9); NEUT # 4.1 x10^3/uL (1.8-7.7); NEUT % 79 % (31-73); PLATELET COUNT 225 x10^3/uL (140-400); RED BLOOD COUNT 3.24 x10^6/uL (4.30-5.70); RED CELL DISTRIBUTION WIDTH 13.7 % (11.5-14.5); WHITE BLOOD COUNT 5.2 x10^3/uL (4.0-11.0)
[2020-10-18 10:40] LABS: CALCIUM 9.9 mg/dL (8.5-10.1); GFR 71.7; POTASSIUM 4.8 mmol/L (3.5-5.1)
[2020-10-18 11:00] VITALS: BP 121/70
[2020-10-18] MEDS: ACETAMINOPHEN 325 MG TABLET. PO PRN ×2 (13:35→21:51)
[2020-10-18 15:00] VITALS: BP 97/61
[2020-10-18] MEDS ORDERED: SODIUM CHL/ALOE VERA NASAL GEL 14.1GM TUBE. NS PRN (16:30)
--- NOTE | 2020-10-18 16:30 | NUR ---
Pt COVID results are negative. No need to re-swab per Dr. Riffel. Santos to transfer to med/surg.
--- NOTE | 2020-10-18 16:57 | NUR ---
SW following for discharge planning. Spoke with RN and reviewed chart. Pt from home. Pt on 8l 02 with a baseline of 7l 02 at home per RN. Pt's COVID result came back negative. Pt on a cardiac diet and PT/OT to evaluate. Pt to transfer to . No further needs from this SW. Addendum: 10/19/20 at 1735 by ISELA MORRISON Pt did not transfer. SW to continue following.
[2020-10-18] MEDS ORDERED: FLUTICASONE 50MCG/NASAL SPRAY 16GM BOTTLE. NS ONE (18:00)
[2020-10-18] MEDS: FLUTICASONE 50MCG/NASAL SPRAY 16GM BOTTLE. NS SCH (18:09)
[2020-10-18 19:00] VITALS: BP 99/50
[2020-10-18] MEDS: IPRATRPIUM/ALBUTEROL 0.5/2.5MG 3 ML NEBU. NEB SCH (21:01)
[2020-10-18] MEDS: BUDESONIDE 0.5 MG/2 ML NEBU. NEB SCH (21:01)
[2020-10-18] MEDS: traZODone 50 MG TABLET. PO PRN (21:51)
[2020-10-18 23:00] VITALS: BP 96/48
[2020-10-19 03:00] VITALS: BP 121/64
[2020-10-19 07:00] VITALS: BP 135/76
[2020-10-19] MEDS: IPRATRPIUM/ALBUTEROL 0.5/2.5MG 3 ML NEBU. NEB SCH ×4 (08:00→20:58)
[2020-10-19] MEDS: FLUTICASONE/VILANTEROL 200/25 INHALER. INH SCH (08:16)
[2020-10-19] MEDS: FLUTICASONE 50MCG/NASAL SPRAY 16GM BOTTLE. NS SCH (08:17)
[2020-10-19 10:34] VITALS: BP 134/76
--- NOTE | 2020-10-19 11:03 | PDOC ---
[employer] PROGRESS NOTE Date of Service DOS: DATE: 10/19/20 TIME: 11:01 Chief Complaint Chief Complaint A/P; Acute on chronic hypoxic respiratory failure - Acute COPD exacerbation - nebulizers, inhalers, steroids. 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 EMS turned his oxygen up to 8 and he has had normal pulse ox since that time. Patient states this is been ongoing for the last couple of days. No fevers, mild cough. Has been to the [facility] with multiple COPD exacerbations in the past. No recent sick contacts or COVID 19 exposures. He has been eating poorly recently and losing weight as well. Was tripoding with accessory muscle use, pursed lips with conversational dyspnea on interview in ED. Labs with WBC 7.5, Hb 11.8, platelets 243, MCV 101, Na 139, K 4.3, BUN 18, Cr 1, glucose 119, Ca 10.3, alk phos 118, BNP 282, Trop 0. ABG with pH 7.44, PaCO2 45, PaO2 128 on 8L. Chest radiograph with COPD with enlargement of the pulmonary arteries, suggesting pulmonary arterial hypertension, and volume loss in the right upper lobe with elevation of the minor fissure, confirmed on CT appeared to be bronchiectasis Admitted for further care. 10/18: Afebrile. Less short of breath, more comfortable in bed. No GI symptoms. Seen by pulmonology. Awaiting COVID results Covid negative breathing better on the liters. Worked with PT and OT able to care for himself. He is asking if he can have a machine that can go up to 8 L at home. Advised on 6-minute walk prior to advising change. Vitals/I&O Vitals/I&O: Vital Signs Date Time Temp Pulse Resp B/P (MAP) Pulse Ox O2 Delivery O2 Flow Rate FiO2 10/19/20 10:34 97.9 94 18 134/76 (95) 100 Nasal Cannula 8.0 97.9 I & O 10/18/20 10/18/20 10/19/20 15:00 23:00 07:00 Intake Total 50 ml Balance 50 ml Physical Exam General: Alert, Oriented X3, Cooperative, severe distress Abdomen: Normal bowel sounds, Soft, No tenderness, No hepatosplenomegaly, No masses Extremities: No clubbing, No cyanosis, No edema, Normal pulses, No tenderness/swelling Skin: No rashes, No breakdown, No significant lesion Assessment and Plan Assessmemt and Plan Problems Medical Problems: (1) COPD exacerbation Status: Acute Comment Review of Relevant I have reviewed the following items joseph (where applicable) has been applied. Medications: Current Medications Medications (Trade) Dose Ordered Sig/Carlos Route PRN Reason Start Time Stop Time Status Last Admin Dose Admin Albuterol/ Ipratropium (Duoneb) 3 ml RTQID NEB 10/18/20 20:00 10/18/20 21:01 Budesonide (Pulmicort) 0.5 mg RTBID NEB 10/18/20 20:00 10/18/20 21:01 Fluticasone Propionate (Flonase) 2 spray DAILY NS 10/18/20 18:30 10/19/20 08:17 Sodium Chloride ([place] Saline Nasal) 1 maira PRN Q2HR PRN NS NASAL CONGESTION 10/18/20 16:30 10/18/20 17:27 Justifications for Admission Other Justification JESSIE MORLEY MD Oct 19, 2020 11:03
[2020-10-19] MEDS: BUDESONIDE 0.5 MG/2 ML NEBU. NEB SCH ×2 (11:33→20:58)
[2020-10-19 14:47] VITALS: BP 98/57
[2020-10-19] MEDS ORDERED: PRED20TA PO (15:14)
--- NOTE | 2020-10-19 17:36 | NUR ---
SW following for discharge planning. Spoke with RN and reviewed chart. SW awaiting 6 min walk results to see if increased 02 needed on discharge. [place] administers 02 for this pt. SW following.
[2020-10-19 19:00] VITALS: BP 112/66
[2020-10-19] MEDS: traZODone 50 MG TABLET. PO PRN (21:10)
[2020-10-19] MEDS: ENOXAPARIN 30 MG/0.3 ML SYRINGE. SQ SCH (21:10)
[2020-10-19] MEDS: ACETAMINOPHEN 325 MG TABLET. PO PRN (21:10)
[2020-10-19 23:00] VITALS: BP 114/57
[2020-10-20 03:00] VITALS: BP 107/51
[2020-10-20 07:00] VITALS: BP 114/70
[2020-10-20] MEDS: BUDESONIDE 0.5 MG/2 ML NEBU. NEB SCH (07:40)
[2020-10-20] MEDS: IPRATRPIUM/ALBUTEROL 0.5/2.5MG 3 ML NEBU. NEB SCH ×2 (07:40→12:17)
--- NOTE | 2020-10-20 08:06 | PDOC ---
PULMONARY PROGRESS NOTES DATE: 10/20/20 TIME: 08:04 Subjective Pt. is sitting EOB remains on 8 liters N/C no fever No increased SOA or cough Vitals Vital Signs Date Time Temp Pulse Resp B/P (MAP) Pulse Ox O2 Delivery O2 Flow Rate FiO2 10/20/20 07:40 99 Nasal Cannula 8.0 10/20/20 03:00 98.0 85 19 107/51 (69) 98.0 ROS: No Nausea, No Chest Pain, No Abdominal Pain, No Increase Cough General: Alert, Oriented X4 Lungs: Clear Cardiovascular: S1, S2 Abdomen: Soft Neuro Exam: Alert Extremities: No Edema Skin: Warm, Dry Labs Laboratory Tests Test 10/18/20 09:52 White Blood Count 5.2 x10^3/uL (4.0-11.0) Red Blood Count 3.24 x10^6/uL (4.30-5.70) Hemoglobin 11.0 g/dL (13.0-17.5) Hematocrit 32.7 % (39.0-53.0) Mean Corpuscular Volume 101 fL (79-100) Mean Corpuscular Hemoglobin 34 pg (25-35) Mean Corpuscular Hemoglobin Concent 34 g/dL (31-37) Red Cell Distribution Width 13.7 % (11.5-14.5) Platelet Count 225 x10^3/uL (140-400) Neutrophils (%) (Auto) 79 % (31-73) Lymphocytes (%) (Auto) 9 % (24-48) Monocytes (%) (Auto) 12 % (0-9) Eosinophils (%) (Auto) 0 % (0-3) Basophils (%) (Auto) 1 % (0-3) Neutrophils # (Auto) 4.1 x10^3/uL (1.8-7.7) Lymphocytes # (Auto) 0.5 x10^3/uL (1.0-4.8) Monocytes # (Auto) 0.6 x10^3/uL (0.0-1.1) Eosinophils # (Auto) 0.0 x10^3/uL (0.0-0.7) Basophils # (Auto) 0.0 x10^3/uL (0.0-0.2) Sodium Level 140 mmol/L (136-145) Potassium Level 4.8 mmol/L (3.5-5.1) Chloride Level 101 mmol/L (98-107) Carbon Dioxide Level 33 mmol/L (21-32) Anion Gap 6 (6-14) Blood Urea Nitrogen 27 mg/dL (8-26) Creatinine 1.0 mg/dL (0.7-1.3) Estimated GFR (Cockcroft-Gault) 71.7 Glucose Level 125 mg/dL (70-99) Calcium Level 9.9 mg/dL (8.5-10.1) Vitamin B12 Level 824 pg/mL (247-911) 25-Hydroxy Vitamin D Total 34.9 ng/mL (30-100) Medications Active Scripts Medications Dose Route/Sig Max Daily Dose Days Date Category Prednisone 20 Mg Tablet 1 Tab PO DAILY 5 10/19/[address] chest IMPRESSION: 1. Abnormality noted on the prior radiograph corresponds to right upper lobe subpleural opacities with volume loss and bronchiectasis. Suspect this represents sequela of chronic infection or potentially post radiation change if patient has been previously treated. No definite mass or thoracic lymphadenopathy is identified. Recommend comparison with prior imaging, or if no imaging available 3-6 month follow-up chest CT to assess stability. 2. Few small indeterminate pulmonary nodules. Attention on follow-up imaging. 3. Age-indeterminate compression deformities at nearly every thoracic level. Correlate for history of trauma/focal tenderness. Impression . IMPRESSION: 1. Acute on chronic hypoxic respiratory failure secondary to acute exacerbation of chronic obstructive pulmonary disease. ( Baseline 7 litres) 2. Abnormal CT chest with sequelae of chronic lung disease. He has chronic pleural thickening with some evidence of bronchiectasis and architectural distortion. He has no known history of cancer and never received any radiation. No known history of Mycobacterium avium infection. This CT is likely a sequelae of chronic infections. Plan . RECOMMENDATIONS: Continue supplemntal oxygen as need to to keep sats above 92%, on 8 liters, wean as tolerated 6 min walk prior to D/C COVID-19 negative PT. follows at [facility] for futher care no need for ABX at this time DVT/GI PPX NEHEMIAS HUYNH MD Oct 20, 2020 08:06
[2020-10-20] MEDS: FLUTICASONE/VILANTEROL 200/25 INHALER. INH SCH (08:14)
[2020-10-20] MEDS: FLUTICASONE 50MCG/NASAL SPRAY 16GM BOTTLE. NS SCH (08:14)
[2020-10-20 11:00] VITALS: BP 120/76
--- NOTE | 2020-10-20 11:29 | PDOC ---
[employer] PROGRESS NOTE Date of Service DOS: DATE: 10/20/20 TIME: 11:28 Chief Complaint Chief Complaint A/P; Acute on chronic hypoxic respiratory failure - Acute COPD exacerbation - nebulizers, inhalers, steroids. 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 EMS turned his oxygen up to 8 and he has had normal pulse ox since that time. Patient states this is been ongoing for the last couple of days. No fevers, mild cough. Has been to the [facility] with multiple COPD exacerbations in the past. No recent sick contacts or COVID 19 exposures. He has been eating poorly recently and losing weight as well. Was tripoding with accessory muscle use, pursed lips with conversational dyspnea on interview in ED. Labs with WBC 7.5, Hb 11.8, platelets 243, MCV 101, Na 139, K 4.3, BUN 18, Cr 1, glucose 119, Ca 10.3, alk phos 118, BNP 282, Trop 0. ABG with pH 7.44, PaCO2 45, PaO2 128 on 8L. Chest radiograph with COPD with enlargement of the pulmonary arteries, suggesting pulmonary arterial hypertension, and volume loss in the right upper lobe with elevation of the minor fissure, confirmed on CT appeared to be bronchiectasis Admitted for further care. 10/18: Afebrile. Less short of breath, more comfortable in bed. No GI symptoms. Seen by pulmonology. Awaiting COVID results 10/19: Covid negative breathing better on the liters. Worked with PT and OT able to care for himself. He is asking if he can have a machine that can go up to 8 L at home. Advised on 6-minute walk prior to advising change. Afebrile overnight. Breathing stable. 6 minute walk revealed need for 6 L nasal cannula at rest and 7 L nasal cannula with exertion. Consults: Pulm Vitals/I&O Vitals/I&O: Vital Signs Date Time Temp Pulse Resp B/P (MAP) Pulse Ox O2 Delivery O2 Flow Rate FiO2 10/20/20 08:00 Nasal Cannula 8.0 10/20/20 07:40 99 10/20/20 07:00 97.7 90 16 114/70 (85) 97.7 I & O 10/19/20 10/19/20 10/20/20 15:00 23:00 07:00 Intake Total 0 ml Output Total 400 ml 200 ml Balance -400 ml -200 ml Physical Exam General: Alert, Oriented X3, Cooperative, severe distress Lungs: Clear Abdomen: Normal bowel sounds, Soft, No tenderness, No hepatosplenomegaly, No masses Extremities: No clubbing, No cyanosis, No edema, Normal pulses, No tenderness/swelling Skin: No rashes, No breakdown, No significant lesion Assessment and Plan Assessmemt and Plan Problems Medical Problems: (1) COPD exacerbation Status: Acute Comment Review of Relevant I have reviewed the following items joseph (where applicable) has been applied. Justifications for Admission Other Justification JESSIE MORLEY MD Oct 20, 2020 11:29
--- NOTE | 2020-10-20 12:48 | SNU/HH DC ---
DISCHARGE WITH HOME HEALTH DISCHARGE INFORMATION: Discharge Date: Oct 20, 2020 Final Diagnosis: Problems Medical Problems: (1) COPD exacerbation Status: Acute Condition on Discharge: Stable CODE STATUS: Code Status: Full HOME HEALTH: Face to Face: I certify this patient is under my care and that I, or a nurse practitioner or physician's advertising sales assistant working with me, had a face to face encounter that meets the physician face to face encounter requirements with this patient on 10/20/20. Medical Complications: COPD Retirement For: Assess Cardiopulm Status, Assess & Educate Safety, Medication Management RN For Eval/Treatment: Yes Physical Therapy For: Evalulation/Treatment Occupational Therapy For: Evaluation/Treatment Pt Meets Homebound Status: Extreme weakness w/ amb., Limited distance walking POST DISCHARGE ORDERS: Activity Instructions for Disc: Resume previous activity Weight Bearing Status after Di: Full weight bearing DIET AFTER DISCHARGE: Regular CHECKS AFTER DISCHARGE: Checks after discharge: Check blood press - daily, Weigh Yourself Daily FOLLOW-UP: PCP to follow Home Health: [facility] TREATMENT/EQUIPMENT ORDERS: Discharge Respiratory Equipmen: Oxygen, MDI CERTIFICATION STATEMENT: Certification Statement: Certification Statement: Based on the above finding, I certify that this patient is confined to the home and needs intermittent chcf care, physical therapy and/or speech therapy, or continues to need occupational therapy.~ This patient is under my care, and I have initiated the establishment of the plan of care.~ This patient will be followed by myself or a community physician who will periodically review the plan of care. Home Meds Active Scripts Prednisone (PREDNISONE) 20 Mg Tablet, 1 TAB PO DAILY for COPD for 5 Days, #5 TAB Prov:JESSIE MORLEY MD 10/19/20 Discontinued Scripts Cephalexin (CEPHALEXIN) 500 Mg Capsule, 1 CAP PO QID, #20 CAP Prov:MALLIKA BELLO MD 05/22/18 JESSIE MORLEY MD Oct 20, 2020 12:48
--- NOTE | 2020-10-20 14:08 | NUR ---
Pt discharged to home with step son. Discharge teaching done and he verbalized understanding.
--- NOTE | 2020-10-20 14:23 | PDOC3 ---
Discharge Summary Visit Information Date of Admission: Oct 17, 2020 Date of Discharge: Oct 20, 2020 Admitting Diagnosis: Acute COPD exacerbation Final Diagnosis Problems Medical Problems: (1) COPD exacerbation Status: Acute Brief Hospital Course Allergies Allergies Coded Allergies Type Severity Reaction Last Updated Verified No Known Drug Allergies 05/22/18 No Vital Signs Vital Signs Date Time Temp Pulse Resp B/P (MAP) Pulse Ox O2 Delivery O2 Flow Rate FiO2 10/20/20 12:17 100 Nasal Cannula 8.0 10/20/20 11:00 97.9 92 16 120/76 (91) 97.9 Brief Hospital Course Mr Myrick is an 80yo [place] w/ PMHx COPD on 7 L of oxygen at home presents to ED via EMS c/o difficulty breathing. EMS turned his oxygen up to 8 and he has had normal pulse ox since that time. Patient states this is been ongoing for the last couple of days. No fevers, mild cough. Has been to the [facility] with multiple COPD exacerbations in the past. No recent sick contacts or COVID 19 exposures. He has been eating poorly recently and losing weight as well. Was tripoding with accessory muscle use, pursed lips with conversational dyspnea on interview in ED. Labs with WBC 7.5, Hb 11.8, platelets 243, MCV 101, Na 139, K 4.3, BUN 18, Cr 1, glucose 119, Ca 10.3, alk phos 118, BNP 282, Trop 0. ABG with pH 7.44, PaCO2 45, PaO2 128 on 8L. Chest radiograph with COPD with enlargement of the pulmonary arteries, suggesting pulmonary arterial hypertension, and volume loss in the right upper lobe with elevation of the minor fissure, confirmed on CT appeared to be bronchiectasis Admitted for further care. 10/18: Afebrile. Less short of breath, more comfortable in bed. No GI symptoms. Seen by pulmonology. Awaiting COVID results 10/19: Covid negative breathing better on the liters. Worked with PT and OT able to care for himself. He is asking if he can have a machine that can go up to 8 L at home. Advised on 6-minute walk prior to advising change. Afebrile overnight. Breathing stable. 6 minute walk revealed need for 6 L nasal cannula at rest and 7 L nasal cannula with exertion. Consults: Pulm Problem list: Acute on chronic hypoxic respiratory failure - Covid negative, was COPD exacerbation improved with aggressive steroids and nebs, home on steroid taper, no indication for antibiotics given no change in sputum Acute COPD exacerbation - nebulizers, inhalers, steroids. 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, will have senior talent acquisition specialist to see Increased pulmonary artery markings - likely pulm HTN from COPD Macrocytic anemia - will check B12 level Hypercalcemia - will check vitamin D levels, if normal will check PTH Greater than 30 minutes spent on d/c home with home health Discharge Information Condition at Discharge: Improved Follow Up: Weeks (1) Disposition/Orders: D/C to Home w/ HH Scheduled Prednisone (Prednisone) 20 Mg Tablet, 1 TAB PO DAILY for COPD for 5 Days, #5 Prescribed by: JESSIE MORLEY MD on 10/19/20 1514 Discontinued Medications Cephalexin (Cephalexin) 500 Mg Capsule, 1 CAP PO QID, #20 Prescribed by: MALLIKA BELLO MD on 05/22/18 0009 Justicifation of Admission Dx: Justifications for Admission: Justification of Admission Dx: Yes Respiratory Failure: Severe Resp Distress JESSIE MORLEY MD Oct 20, 2020 14:23
--- NOTE | 2020-10-20 16:13 | NUR ---
SW following for discharge planning. Spoke with RN and reviewed chart. 6 min walk results indicate no increased 02 needs. Pt has home 02. Pt discharge today, 10/20 self-care. No further SW needs.
== END 2020-10-20 14:00 | disposition home health service (06) | DRG 189 ==
LOC: ER 12:34 → ED HOLD 16:40 → 6 SOUTH 20:12
PROVIDERS: ADMIT Internal Medicine; ATTEND Internal Medicine
DX: J96.21 Acute and chronic respiratory failure with hypoxia (principal); R64 Cachexia; J98.11 Atelectasis; J43.2 Centrilobular emphysema; J47.9 Bronchiectasis, uncomplicated; D53.9 Nutritional anemia, unspecified; E83.52 Hypercalcemia; I25.10 Atherosclerotic heart disease of native coronary artery without angina pectoris; I27.20 Pulmonary hypertension, unspecified; Z82.49 Family history of ischemic heart disease and other diseases of the circulatory system; Z87.891 Personal history of nicotine dependence; Z20.822 Contact with and (suspected) exposure to COVID-19
CPT/HCPCS: 36415; 36600; 71045; 71260; 80048; 80053; 82306; 82607; 82805; 83880; 84145; 84484; 85025; 93005; 94640; 94760; 96374; 99285; J1100; J1650; Q9967; U0003; 97116-GP; 97530-GO; 97537-GO; G0378; J7613; J7626